=== PATIENT | female | born 1990 | race Caucasian/White ===

== ENCOUNTER 2017-03-09 14:54 | Emergency (ER) | payer MEDICAID ==
[~2017-03-09] VITALS: Ht 160 cm; Wt 98.0 kg
[2017-03-09 14:58] VITALS: Ht 160 cm; Wt 98.0 kg
--- NOTE | 2017-03-09 15:18 | ERD ---
ER Documentation Chief Complaint Date/Time DATE: 03/09/17 TIME: 15:17 Chief Complaint LBP X 1 DAY AT WORK, REPORTS BILAT UPPER THIGH PAIN, DENIES BOWEL/BLADDER HPI 26-year-old female complains of lower back pain after slipping and falling onto her buttock this afternoon. She describes achy pain that is localized, Mild, worse with walking, better with sitting,denies paresthesias, bowel bladder dysfunction. She denies saddle anesthesia. ROS All systems reviewed and are negative except as per history of present illness. Medications Home Meds Active Scripts Ibuprofen* (Motrin*) 600 Mg Tab, 600 MG PO Q6, #30 TAB Prov:JESUS RIDER PA-C 03/09/17 PMhx/Soc Medical and Surgical Hx: pt denies Medical Hx, pt denies Surgical Hx History of Surgery: No Anesthesia Reaction: No Hx Neurological Disorder: No Hx Respiratory Disorders: No Hx Cardiac Disorders: No Hx Psychiatric Problems: No Hx Miscellaneous Medical Probl: No Hx Alcohol Use: No Hx Substance Use: No Hx Tobacco Use: No Smoking Status: Never smoker Physical Exam Vitals Vital Signs Date Time Temp Pulse Resp B/P Pulse Ox O2 Delivery O2 Flow Rate FiO2 03/09/17 14:58 99.1 76 18 118/82 99 Physical Exam General: Well-developed, well-nourished. The patient appears in no acute distress. HEENT: Head is normocephalic, atraumatic. No scleral icterus Neck: Supple. Nontender. Lungs: Clear to auscultation. Normal air movement. Heart: Regular rate and rhythm. S1 and S2 are normal. No murmurs, gallops, or rubs. Abdomen: Soft, nontender, nondistended. Bowel sounds are normoactive. Back: Diffuse paraspinal tenderness of the lumbar, no crepitus or midline tenderness. Gait is normal, strength lower extremities 5 out of 5 bilaterally. Extremities: No clubbing or cyanosis. Normal pulses. Moving extremities x 4. No weakness. Neurologic: Alert and oriented 3. No focal deficits. Skin: Normal turgor. No rash or lesions. Results 24 hrs Current Medications Medications (Trade) Dose Ordered Sig/Robert Route PRN Reason Start Time Stop Time Status Last Admin Dose Admin Ibuprofen (Motrin) 600 mg ONCE ONCE PO 03/09/17 15:30 03/09/17 15:31 DC 9/23/17 15:26 Acetaminophen/ Hydrocodone Bitart ([place] (5/325)) 1 tab ONCE ONCE PO 03/09/17 15:30 03/09/17 15:31 DC 03/09/17 15:28 DIAGNOSTIC IMAGING REPORT Patient: JESSE WHITLOCK : 1990 Age: 26 Sex: F MR #: [id number] DOS: 03/09/17 1516 Ordering MD: JESUS RIDER PA-C Location: [facility] Room/Bed: PROCEDURE: Lumbar spine series CLINICAL INDICATION: Pain status post slip and fall TECHNIQUE: AP, lateral and cone lateral views COMPARISON: None available FINDINGS: The visualized lumbar spine alignment is normal. Preservation vertebral body heights and disc spaces are noted. No acute fractures, traumatic subluxations, spondylolisthesis or spondylolysis is present. A well corticated accessory ossification or sequela of prior remote trauma is noted adjacent to the spinous process of L1. The posterior elements are intact and well aligned. The soft tissues are remarkable for an intrauterine device superimposed over the pelvis. No abnormal calcifications are present. The bilateral sacroiliac joints and imaged pelvis are normal. IMPRESSION: 1. No acute fractures, traumatic subluxations, spondylolisthesis or spondylolysis is present. 2. Intrauterine device in the soft tissues of the pelvis. RPTAT: HDC .Floridalma Emanuel MD, Date Time Electronically viewed and signed by .Floridalma Emanuel MD, on 03/09/2017 16: 41 .C/ CC: JESUS RIDER PA-C Procedures/MDM ED course: She received ibuprofen and [place] for pain. Medical decision makin-year-old female comes in with low back pain, most consistent with a contusion. Lumbar x-rays are negative.Due to fall and injury patient had x-rays of the lumbar spine obtained. Patient's spine symptoms have stabilized while they have been evaluated in the department and are appropriate for outpatient work up. No evidence of cauda equina, cord compression, infiltrative, or infectious etiology. Departure Diagnosis: Primary Impression: Injury of back Condition: Good JESUS RIDER PA-C Mar 09, 2017 15:18
[2017-03-09] MEDS ORDERED: IBUPROFEN 600 MG TAB PO ONE (15:30)
[2017-03-09] MEDS ORDERED: HYDROCODONE/APAP (5/325) TAB PO ONE (15:30)
--- NOTE | 2017-03-09 16:41 | RADRPT ---
PROCEDURE: Lumbar spine series CLINICAL INDICATION: Pain status post slip and fall TECHNIQUE: AP, lateral and cone lateral views COMPARISON: None available FINDINGS: The visualized lumbar spine alignment is normal. Preservation vertebral body heights and disc spaces are noted. No acute fractures, traumatic subluxations, spondylolisthesis or spondylolysis is presen t. A well corticated accessory ossification or sequela of prior remote trauma is noted adjacent to t he spinous process of L1. The posterior elements are intact and well aligned. The soft tissues are r emarkable for an intrauterine device superimposed over the pelvis. No abnormal calcifications are pr esent. The bilateral sacroiliac joints and imaged pelvis are normal. IMPRESSION: 1. No acute fractures, traumatic subluxations, spondylolisthesis or spondylolysis is present. 2. Intrauterine device in the soft tissues of the pelvis. RPTAT: HDC .Floridalma Emanuel MD, Date Time Electronically viewed and signed by .Floridalma Emanuel MD, on 03/09/2017 16:41 .C/
[2017-03-09] MEDS ORDERED: IBUP-1542 PO (16:46)
== END 2017-03-09 16:59 | disposition home or self-care (01) ==
LOC: FTE 14:54
DX: S39.92XA Unspecified injury of lower back, initial encounter (principal); W18.39XA Other fall on same level, initial encounter; Y92.89 Other specified places as the place of occurrence of the external cause
CPT/HCPCS: 72100; Z7502; Z7610